=== PATIENT | male | born 1950 | race Caucasian/White ===

== ENCOUNTER → 2016-06-17 | Outpatient (CLI) | payer BC ==
[~2016-06-17] MED LIST: BUPR75TA9 PO; FINA5TAB4 PO; LATA0.0015 EACHEYE; OXCA600T3 PO; SIMV-8 PO
[2016-06-17 12:47] LABS: Basophils # (auto) 0 uL; Basophils % (auto) 0.6 % (0.0-2.0); Eosinophils # (auto) 0.2 uL; Eosinophils % (auto) 4.6 % (0.0-7.0); Hemoglobin 15.3 g/dL (13.5-17.5); Lymphocytes # (auto) 1.2 uL; Lymphocytes % (auto) 22.8 % (10.0-50.0); Mean Corpuscular Hemoglobin 31.4 pg (28.0-32.0); Mean Corpuscular Volume 92.3 fL (80.0-100.0); Mean Platelet Volume 7.8 fL (7.4-10.4); Monocytes # (auto) 0.5 uL; Monocytes % (auto) 8.7 % (0.0-12.0); Neutrophils # (auto) 3.3 uL; Neutrophils % (auto) 63.3 % (37.0-80.0); Platelet Count (auto) 205 10^3/uL (140-450); Red Cell Distribution Width 13.9 % (11.6-16.0); White Blood Cell 5.3 10^3/uL (4.4-10.8)
[2016-06-17 12:54] LABS: Urine Bilirubin Negative (Negative); Urine Blood Negative /uL (Negative); Urine Color Yellow (Yellow); Urine Glucose Normal (Normal); Urine Ketone Negative (Negative); Urine Nitrite Negative (Negative); Urine RBC 2 /hpf (0 - 3); Urine Urobilinogen Normal (Negative); Urine pH 6.5 (5.0-8.0)
[2016-06-17 13:13] LABS: BUN/Creatinine Ratio 21.3; Bilirubin, Total 0.6 mg/dL (0.2-1.0); Calcium 8.8 mg/dL (8.5-10.1); Potassium 4.3 mmol/L (3.5-5.1)
[2016-06-17 13:32] LABS: Partial Thromboplastin Time 26.1 sec (22.64-33.71)
[2016-06-17 13:49] LABS: INR 0.96 (0.9-1.15); Prothrombin Time 10.1 sec (9.37-12.3)
== END | disposition home or self-care (01) ==
LOC: LAB 11:18
PROVIDERS: ATTEND Urology
DX: Z01.812 Encounter for preprocedural laboratory examination (principal)
CPT/HCPCS: 36415; 80053; 81001; 85025; 85610; 85730

== ENCOUNTER 2016-06-20 06:05 | Day surgery (SDC) | payer BC ==
[~2016-06-20] VITALS: Ht 170.2 cm; Wt 78.0 kg
[2016-06-20] MEDS ORDERED: ceFAZolin 1GM/50ML D5W 50 ML IV ONE (06:38)
[2016-06-20] MEDS ORDERED: MEPERIDINE HCL (50 MG/ML) 1 ML VIAL ONE (07:34)
[2016-06-20] MEDS ORDERED: fentaNYL CITRATE 100 MCG/2 ML VL ONE (07:34)
[2016-06-20] MEDS ORDERED: MIDAZOLAM HCL 1MG/1ML-2 ML VIAL ONE (07:34)
[2016-06-20] MEDS ORDERED: DEXAMETHASONE SOD PHOS 10MG/1ML VIAL INJ ONE (07:34)
[2016-06-20] MEDS ORDERED: PROPOFOL 10 MG/ML 20 ML IV ONE (07:34)
[2016-06-20] MEDS ORDERED: PHENYLEPHRINE HCL 10 MG/ML VL ONE (08:35)
[2016-06-20] MEDS ORDERED: LABETALOL HCL 5 MG/ML 4ML SYRINGE IV PRN (09:00)
[2016-06-20] MEDS ORDERED: ePHEDrine SULFATE 50 MG/ML AMP IV PRN (09:00)
[2016-06-20] MEDS ORDERED: KETOROLAC TROMETH 30 MG/ML 1ML VIAL IV ONE (09:00)
[2016-06-20] MEDS ORDERED: HYDROmorphone HCL 2 MG/ML VL IV PRN (09:00)
[2016-06-20] MEDS ORDERED: MORPHINE SULF INJ 2 MG/ML SYRINGE 1ML IV PRN (09:00)
[2016-06-20] MEDS ORDERED: ONDANSETRON HCL 4 MG/2 ML VIAL IV ONE (09:00)
[2016-06-20] MEDS ORDERED: hydrALAZINE HCL 20 MG/ML VL IV PRN (09:00)
[2016-06-20] MEDS ORDERED: MIDAZOLAM HCL 1MG/1ML-2 ML VIAL IV PRN (09:00)
[2016-06-20 11:07] VITALS: BP 166/84
== END 2016-06-20 11:15 | disposition home or self-care (01) ==
LOC: SUR 06:05
PROVIDERS: ATTEND Urology
DX: C61 Malignant neoplasm of prostate (principal); I10 Essential (primary) hypertension; I25.10 Atherosclerotic heart disease of native coronary artery without angina pectoris; E78.00 Pure hypercholesterolemia, unspecified; N40.0 Benign prostatic hyperplasia without lower urinary tract symptoms; F32.9 Major depressive disorder, single episode, unspecified; E78.5 Hyperlipidemia, unspecified; Z98.52 Vasectomy status
CPT/HCPCS: 55873; C1769; C2618; J0690; J1100; J2175; J2250; J2370; J2704; J3010